=== PATIENT | female | born 1995 | race Caucasian/White ===

== ENCOUNTER 2022-02-08 13:22 | Outpatient (CLI) | payer BC ==
--- NOTE | 2022-02-08 17:07 | Ultrasound Report ---
PROCEDURE: OB Detailed Eval INDICATIONS: SUPERVISOIN OF OUTSIDE/PRIOR DATING DATA: Last menstrual period (LMP): 09/24/2021. LMP-based estimated date of delivery (MAEVE): 07/01/2022. First dating scan (date and location): 12/01/2021. Estimated date of delivery (MAEVE) from first dating scan: 06/30/2022. TECHNIQUE: Real-time scanning was performed of the fetus, with image documentation and biometric measurements . COMPARISON: Prior OB ultrasound report 12/01/2021 FINDINGS: General: A single living intrauterine gestation is present. Presentation: Breech Placenta: Placental position is posterior, and appeared low lying measuring 1.2 cm from the cervical os. Amniotic fluid index: 12.6 cm, within normal limits for gestational age. heart rate: 137 beats per minute. Maternal cervical canal: 3.8 cm long; normal length is 2.5 cm or more. biometrics: Biparietal diameter: 4.8 cm 20 weeks 4 days Head circumference: 17.3 cm 19 weeks 6 days Abdominal circumference: 14.7 cm 20 weeks 0 days Femur length: 3.1 cm 19 weeks 3 days Estimated gestational age from initial scan: 19 weeks 5 days Composite gestational age from present scan: 20 weeks 0 days Estimated weight and percentile: 313 g 50th percentile Measurement variability in biometric dating: +/- 10 days from 12-20 weeks gestation, +/- 2 weeks from 20-30 weeks gestation, +/- 3 weeks at 30 weeks gestation or later. Anatomic survey: Neuro: Ventricles are normal at less than 10 mm. Cisterna magna is normal at 3-11 mm. Cerebellum i s normal in size and morphology. Nuchal skin fold: Normal at less than 6 mm between 14 and 20 weeks gestational age. Face: Nose and lips, facial profile are normal. Spine: No evidence for spina bifida. Heart: 4-chambered heart is present, with normal ventricular outflow tracts. Diaphragm: Diaphragm is intact. Stomach: Left-sided stomach is present. Kidneys: No hydronephrosis. Normal is less than 5 mm in 2nd trimester, less than 7 mm in 3rd trimester. Cord: 3 vessel cord has orthotopic insertion. Bladder: Normal in size. Extremities: All 4 extremities are visualized. IMPRESSION: Single live intrauterine with ultrasound gestational age today of 20 weeks 0 days. Placenta is low-lying measuring 1.2 cm from the cervical os. Anatomy is within normal limits. Reviewed by: Jackie Son MD on 02/08/2022 5:05 PM PDT Approved by: Jackie Son MD on 02/08/2022 5:05 PM PDT Station ID: [id number]
== END 2022-02-08 13:23 | disposition home or self-care (01) ==
LOC: DI 13:22
PROVIDERS: ATTEND Nurse Practitioner Obstetrics & Gynecology
DX: O44.42 Low lying placenta NOS or without hemorrhage, second trimester (principal); Z36.89 Encounter for other specified antenatal screening; Z3A.20 20 weeks gestation of pregnancy

== ENCOUNTER 2022-04-01 10:39 | Outpatient (CLI) | payer BC ==
[2022-04-01 11:55] LABS: HGB - HEMOGLOBIN 11.9 g/dL (12.0-16.0); MEAN CORPUSCULAR HEMOGLOBIN 32.4 pg (27.0-31.0); MEAN CORPUSCULAR VOLUME 95.4 fL (81.0-99.0); MEAN PLATELET VOLUME 9.1 fL (7.9-10.8); RED BLOOD COUNT 3.67 10^6/uL (4.20-5.40); RED CELL DISTRIBUTION WIDTH 13.1 % (12.0-15.0); WHITE BLOOD COUNT 8.1 x10^3/uL (4.8-10.8)
== END 2022-04-01 10:40 | disposition home or self-care (01) ==
LOC: LAB 10:39
PROVIDERS: ATTEND Nurse Practitioner Obstetrics & Gynecology
DX: Z36.9 Encounter for antenatal screening, unspecified (principal); Z67.91 Unspecified blood type, Rh negative
CPT/HCPCS: 36415; 82950; 85027; 86850

== ENCOUNTER 2022-05-04 13:17 | Outpatient (CLI) | payer BC ==
--- NOTE | 2022-05-04 16:59 | Ultrasound Report ---
PROCEDURE: OB F/U or Repeat INDICATIONS: LOW LYING PLACENTA OUTSIDE/PRIOR DATING DATA: Last menstrual period (LMP): 09/24/2021. LMP-based estimated date of delivery (MAEVE): 07/01/2022. First dating scan (date and location): 12/01/2021, Dr. Quinones. Estimated date of delivery (MAEVE) from first dating scan: 06/30/2022. TECHNIQUE: Real-time scanning was performed of the fetus, with image documentation and biometric measurements. COMPARISON: None. FINDINGS: General: A single living intrauterine gestation is present. Presentation: Vertex Placenta: Placental position is anterior, without previa. Amniotic fluid index: 13.4 cm, 38.8% for gestational age. heart rate: 137 beats per minute. Maternal cervical canal: 3 cm long; normal length is 2.5 cm or more. Estimated gestational age from initial scan: 31 weeks, 6 days Measurement variability in biometric dating: +/- 10 days from 12-20 weeks gestation, +/- 2 weeks from 20-30 weeks gestation, +/- 3 weeks at 30 weeks gestation or more. Other: Not applicable. IMPRESSION: Single live intrauterine gestation in vertex position. No placenta previa. Reviewed by: Cristal Sorensen MD on 05/04/2022 4:58 PM PST Approved by: Cristal Sorensen MD on 05/04/2022 4:58 PM PST Station ID: [id number]
== END 2022-05-04 13:18 | disposition home or self-care (01) ==
LOC: DI 13:17
PROVIDERS: ATTEND Nurse Practitioner Obstetrics & Gynecology
DX: O44.43 Low lying placenta NOS or without hemorrhage, third trimester (principal); Z3A.31 31 weeks gestation of pregnancy

== ENCOUNTER 2022-05-06 12:44 | Outpatient (CLI) | payer BC ==
[2022-05-06 12:58] LABS: HCT - HEMATOCRIT 36.3 % (37.0-47.0); HGB - HEMOGLOBIN 12.5 g/dL (12.0-16.0); MEAN CORPUSCULAR HEMOGLOBIN 32.1 pg (27.0-31.0); MEAN CORPUSCULAR HGB CONC 34.4 g/dL (32.0-36.0); MEAN CORPUSCULAR VOLUME 93.3 fL (81.0-99.0); MEAN PLATELET VOLUME 9.4 fL (7.9-10.8); RED BLOOD COUNT 3.89 10^6/uL (4.20-5.40); RED CELL DISTRIBUTION WIDTH 12.7 % (12.0-15.0); WHITE BLOOD COUNT 8.7 x10^3/uL (4.8-10.8)
[2022-05-06 13:11] LABS: ALBUMIN 3.3 g/dL (3.2-5.5); ALBUMIN/GLOBULIN RATIO 0.9 (1.0-2.2); BILIRUBIN,TOTAL 0.5 mg/dL (0.2-1.0); CALCIUM 8.7 mg/dL (8.5-10.3); CREATININE 0.6 mg/dL (0.4-1.0); POTASSIUM 3.9 mmol/L (3.5-5.0)
== END 2022-05-06 12:45 | disposition home or self-care (01) ==
LOC: LAB 12:44
PROVIDERS: ATTEND Nurse Practitioner Obstetrics & Gynecology
DX: L29.9 Pruritus, unspecified (principal)
CPT/HCPCS: 36415; 80053; 82239; 85027

== ENCOUNTER 2022-06-24 17:38 | Outpatient (CLI) | payer BC ==
--- NOTE | 2022-06-24 19:17 | Ultrasound Report ---
PROCEDURE: OB F/U or Repeat INDICATIONS: UTERINE SIZE-DATE DISCREPANCY, THIRD TRIMESTER OUTSIDE/PRIOR DATING DATA: Last menstrual period (LMP): 09/24/2021. LMP-based estimated date of delivery (MAEVE): 07/01/2022. First dating scan (date and location): 12/01/2021. Estimated date of delivery (MAEVE) from first dating scan: 06/30/2022. The below data below was generated using the ultrasound MAEVE of 06/30/2022 TECHNIQUE: Real-time scanning was performed of the fetus, with image documentation and biometric measurements. Endovaginal scanning: Not performed COMPARISON: 05/04/2022 FINDINGS: General: A single living intrauterine gestation is present. Presentation: Vertex Placenta: Placental position is left lateral and posterior, without previa. Amniotic fluid index: 13.0 cm, within normal limits for gestational age. heart rate: 138 beats per minute. Maternal cervical canal: Not well seen on the late stage of biometrics: Biparietal diameter: 8.55 cm, 34 weeks 3 days Head circumference: 31.84 cm, 35 weeks 6 days Abdominal circumference: 31.08 cm, 35 weeks 0 days Femur length: 6.96 cm, 35 weeks 3 days Estimated gestational age from initial scan: 39 weeks 1 day Composite gestational age from present scan: 35 weeks 2 days Estimated weight and percentile: 2626 g, 2.9 percentile Measurement variability in biometric dating: +/- 10 days from 12-20 weeks gestation, +/- 2 weeks from 20-30 weeks gestation, +/- 3 weeks at 30 weeks gestation or more. Other: Grade 3 placenta. S/D ratio is 3.6, elevated. IMPRESSION: Significant IUGR. Current ultrasound age is 27 days less than clinical age based on init ial first trimester ultrasound. Elevated S/D ratio. Comment: A preliminary report was given to the referring provider by the house mover performing the e xamination. Reviewed by: Raymond Wright MD on 06/24/2022 7:16 PM PST Approved by: Raymond Wright MD on 06/24/2022 7:16 PM PST Station ID: [id number]
== END 2022-06-24 17:39 | disposition home or self-care (01) ==
LOC: DI 17:38
PROVIDERS: ATTEND Nurse Practitioner Obstetrics & Gynecology
DX: O36.5930 Maternal care for other known or suspected poor fetal growth, third trimester, not applicable or unspecified (principal); O26.843 Uterine size-date discrepancy, third trimester; Z3A.39 39 weeks gestation of pregnancy

== ENCOUNTER 2022-06-24 19:00 | Inpatient (IN) | payer BC ==
--- NOTE | 2022-06-24 19:17 | HISTORY & PHYSICAL EXAMINATION ---
Admit History - Visit Reason Visit Reason: Other - : 1 Parity: 0 Premature: 0 Ectopic: 0 : 0 Care: positive: [facility] Risk/History: positive: None Complications This : positive: Other Smoking Status: Never smoker - Mother's Labs Mother's Blood Type: positive: O Mother's RH: positive: Negative GBS: positive: Group B Step Negative Rubella Status: positive: Immune Review of Systems - Constitutional Constitutional: denies: Fatigue, Fever, Chills, Malaise - Eyes Eyes: denies: Blurred vision, Spots in vision, Dipolpia - Cardiovascular Cariovascular: denies: Irregular heart rate, Palpitations, Chest pain, Edema - Gastrointestinal Gastrointestinal: denies: Constipation, Diarrhea, Nausea, Vomiting - Genitourinary Genitourinary: denies: Dysuria - Musculoskeletal Musculoskeletal: denies: Back pain - Integumentary Integumentary: denies: Rash, Pruritis - Neurological Neurological: denies: Headache - Psychiatric Psychiatric: denies: Depression, Anxiety Physical - Abdominal Exam Contraction Intensity: positive: Other Uterine Resting Tone: positive: Soft - Monitoring Strip Review: positive: Category I - Presentation Presentation: positive: Vertex - Vaginal Exam Membranes: positive: Membranes intact - Speculum Exam Speculum Exam Performed: positive: No Plan for Labor - Plan For Labor I expect patient to be DC'd or transferred within 96 hours.: Yes Plan for Labor: Viola is a 27yo @ 39.0wks gestation by IVF implantation who presents to [facility] as directed following her growth ultrasound which revealed 2.9%tile for growth with WNL dopplers, Grade 3 placenta, and OZZY WNL. She denies vaginal bleeding, leakage of fluid or contractions. She reports +FM. She has been a patient of [facility] for the duration of her which has been complicated by low-lying placenta which resolved by her 32wk follow up ultrasound. She conceived via IVF and was cared for initially by [facility]. She has received consistent care for the duration of her . At todays routine visit she was measuring size less than dates with no growth in fundal height x 3 weeks and therefore a growth and OZZY was ordered. Dating criteria: LMP 09/24/2021 IVF transfer date 07/13/2021 Initial U/S @ 5wks confirms Serial exams - agree OB Hx:G1: Current Last pap 2020 WNL, No hx of abnormals. Medical Hx: infertility Surgical Hx: egg retrieval Family Hx: no significant Meds: PNV, endometrin vaginal suppository twice daily Allergies: Penicillin, hydrocodone Social: , lives with Mukul. 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 Her Mukul is a preacher at [employer]. No tobacco, ETOH or recreational drug use. Caffeine intake -none. course: A negative, antibody negative Rubella immune; varicella immune COVID vaccine: x 3 FAS WNL with the exception of low-lying placenta. Size c/w dating (EFW 50%tile). 3VC. OZZY WNL. Tdap 03/2022 F/u ultrasound at 32 weeks WNL. Low lying placenta resolved. 28wk antibody negative Rhogam administered 04/08/2022 Glucola 76 GBS negative Physical exam: Normocephalic, atraumatic Heart RRR w/o M/G/R Lungs CTAB Abdomen gravid, soft, nontender FHR baseline 130,moderate variability, no decelerations No contractions appreciated via tocometry SVE 3/75/-2, posterior. Vertex Bilateral LEs no edema Mood is good Assessment: 27yo @ 39.0wks gestation by IVF transfer date Intrauterine growth restriction GBS neg FHR Category I Plan: Admit for active management/medical induction of labor secondary to IUGR. Continuous monitoring. Expectant management until spontaneous expulsion of cervical ripening balloon or 4hrs. Initiate pitocin for labor augmentation with titration per protocol at that time. Jacuzzi PRN. Nitrous oxide PRN. Epidural per maternal request. Anticipate .
[2022-06-24] MEDS ORDERED: LACTATED RINGERS 1,000 ML ONE (19:41)
[2022-06-24] MEDS ORDERED: TRANEXAMIC ACID IN NACL 1,000 MG/100 ML BAG IV PRN (19:42)
[2022-06-24] MEDS ORDERED: SODIUM CHLORIDE FLUSH 0.9% 10 ML SYRINGE IVP PRN (19:42)
[2022-06-24] MEDS ORDERED: METHYLERGONOVINE 0.2 MG/ML VIAL IM PRN (19:42)
[2022-06-24] MEDS ORDERED: OXYTOCIN 10 UNIT/ML VIAL IM PRN (19:42)
[2022-06-24] MEDS ORDERED: lidocaine 1% 20 ML MDV ID PRN (19:42)
[2022-06-24] MEDS ORDERED: ONDANSETRON 4 MG/2 ML VIAL IVP PRN (19:42)
[2022-06-24] MEDS ORDERED: OXYTOCIN/SODIUM CHLORIDE 500 ML IV PRN (19:42)
[2022-06-24] MEDS ORDERED: miSOPROStoL 200 MCG TABLET BC PRN (19:42)
[2022-06-24] MEDS ORDERED: CARBOPROST TROMETHAMINE 250 MCG/ML AMP IM PRN (19:42)
[2022-06-24] MEDS ORDERED: LACTATED RINGERS 1,000 ML IV SCH (20:00)
--- OUTSIDE RECORDS SUMMARY | 2022-06-24 20:49 | EXTERNAL MEDICAL SUMMARY RPT | Continuity of Care Document ---
:1995 Author Organization [facility] Address [address] [place] [phone] Phone Care Team Providers Name Role Phone Unavailable Unavailable Unavailable Allergies No information. Encounters No information. Functional Status No information. Immunizations No information. Medications No information. Problems No information. Procedures No information. Results/Labs test date author facility value unit interpret ation Result panel 1 (unknown) (no date) (unknown) All (no value) (units unknown ) (unknown) Result panel 2 (unknown) (no date) (unknown) All (no value) (units unknown ) (unknown) Result panel 3 (unknown) (no date) (unknown) All (no value) (units unknown ) (unknown) Result panel 4 (unknown) (no date) (unknown) All (no value) (units unknown ) (unknown) Result panel 5 (unknown) (no date) (unknown) All (no value) (units unknown ) (unknown) Result panel 6 (unknown) (no date) (unknown) All (no value) (units unknown ) (unknown) Result panel 7 (unknown) (no date) (unknown) All (no value) (units unknown ) (unknown) Result panel 8 (unknown) (no date) (unknown) All (no value) (units unknown ) (unknown) Result panel 9 (unknown) (no date) (unknown) All (no value) (units unknown ) (unknown) Result panel 10 (unknown) (no date) (unknown) All (no value) (units unknown ) (unknown) Result panel 11 (unknown) (no date) (unknown) All (no value) (units unknown ) (unknown) Result panel 12 (unknown) (no date) (unknown) All (no value) (units unknown ) (unknown) Result panel 13 (unknown) (no date) (unknown) All (no value) (units unknown ) (unknown) Result panel 14 (unknown) (no date) (unknown) All (no value) (units unknown ) (unknown) Result panel 15 (unknown) (no date) (unknown) All (no value) (units unknown ) (unknown) Result panel 16 (unknown) (no date) (unknown) All (no value) (units unknown ) (unknown) Result panel 17 (unknown) (no date) (unknown) All (no value) (units unknown ) (unknown) Result panel 18 (unknown) (no date) (unknown) All (no value) (units unknown ) (unknown) Result panel 19 (unknown) (no date) (unknown) All (no value) (units unknown ) (unknown) Result panel 20 (unknown) (no date) (unknown) All (no value) (units unknown ) (unknown) Result panel 21 (unknown) (no date) (unknown) All (no value) (units unknown ) (unknown) Result panel 22 (unknown) (no date) (unknown) All (no value) (units unknown ) (unknown) Result panel 23 (unknown) (no date) (unknown) All (no value) (units unknown ) (unknown) Result panel 24 (unknown) (no date) (unknown) All (no value) (units unknown ) (unknown) Result panel 25 (unknown) (no date) (unknown) All (no value) (units unknown ) (unknown) Result panel 26 (unknown) (no date) (unknown) All (no value) (units unknown ) (unknown) Result panel 27 (unknown) (no date) (unknown) All (no value) (units unknown ) (unknown) Result panel 28 (unknown) (no date) (unknown) All (no value) (units unknown ) (unknown) Result panel 29 (unknown) (no date) (unknown) All (no value) (units unknown ) (unknown) Result panel 30 (unknown) (no date) (unknown) All (no value) (units unknown ) (unknown) Result panel 31 (unknown) (no date) (unknown) All (no value) (units unknown ) (unknown) Result panel 32 (unknown) (no date) (unknown) All (no value) (units unknown ) (unknown) Result panel 33 (unknown) (no date) (unknown) All (no value) (units unknown ) (unknown) Result panel 34 (unknown) (no date) (unknown) All (no value) (units unknown ) (unknown) Result panel 35 (unknown) (no date) (unknown) All (no value) (units unknown ) (unknown) Result panel 36 (unknown) (no date) (unknown) All (no value) (units unknown ) (unknown) Result panel 37 (unknown) (no date) (unknown) All (no value) (units unknown ) (unknown) Result panel 38 (unknown) (no date) (unknown) All (no value) (units unknown ) (unknown) Result panel 39 (unknown) (no date) (unknown) All (no value) (units unknown ) (unknown) Result panel 40 (unknown) (no date) (unknown) All (no value) (units unknown ) (unknown) Result panel 41 (unknown) (no date) (unknown) All (no value) (units unknown ) (unknown) Result panel 42 (unknown) (no date) (unknown) All (no value) (units unknown ) (unknown) Result panel 43 (unknown) (no date) (unknown) All (no value) (units unknown ) (unknown) Result panel 44 (unknown) (no date) (unknown) All (no value) (units unknown ) (unknown) Result panel 45 (unknown) (no date) (unknown) All (no value) (units unknown ) (unknown) Result panel 46 (unknown) (no date) (unknown) All (no value) (units unknown ) (unknown) Result panel 47 (unknown) (no date) (unknown) All (no value) (units unknown ) (unknown) Result panel 48 (unknown) (no date) (unknown) All (no value) (units unknown ) (unknown) Result panel 49 (unknown) (no date) (unknown) All (no value) (units unknown ) (unknown) Result panel 50 (unknown) (no date) (unknown) All (no value) (units unknown ) (unknown) Result panel 51 (unknown) (no date) (unknown) All (no value) (units unknown ) (unknown) Result panel 52 (unknown) (no date) (unknown) All (no value) (units unknown ) (unknown) Result panel 53 (unknown) (no date) (unknown) All (no value) (units unknown ) (unknown) Result panel 54 (unknown) (no date) (unknown) All (no value) (units unknown ) (unknown) Result panel 55 (unknown) (no date) (unknown) All (no value) (units unknown ) (unknown) Result panel 56 (unknown) (no date) (unknown) All (no value) (units unknown ) (unknown) Result panel 57 (unknown) (no date) (unknown) All (no value) (units unknown ) (unknown) Result panel 58 (unknown) (no date) (unknown) All (no value) (units unknown ) (unknown) Result panel 59 (unknown) (no date) (unknown) All (no value) (units unknown ) (unknown) Result panel 60 (unknown) (no date) (unknown) All (no value) (units unknown ) (unknown) Result panel 61 (unknown) (no date) (unknown) All (no value) (units unknown ) (unknown) Result panel 62 (unknown) (no date) (unknown) All (no value) (units unknown ) (unknown) Result panel 63 (unknown) (no date) (unknown) All (no value) (units unknown ) (unknown) Result panel 64 (unknown) (no date) (unknown) All (no value) (units unknown ) (unknown) Result panel 65 (unknown) (no date) (unknown) All (no value) (units unknown ) (unknown) Result panel 66 (unknown) (no date) (unknown) All (no value) (units unknown ) (unknown) Result panel 67 (unknown) (no date) (unknown) All (no value) (units unknown ) (unknown) Result panel 68 (unknown) (no date) (unknown) All (no value) (units unknown ) (unknown) Result panel 69 (unknown) (no date) (unknown) All (no value) (units unknown ) (unknown) Result panel 70 (unknown) (no date) (unknown) All (no value) (units unknown ) (unknown) Result panel 71 (unknown) (no date) (unknown) All (no value) (units unknown ) (unknown) Result panel 72 (unknown) (no date) (unknown) All (no value) (units unknown ) (unknown) Result panel 73 (unknown) (no date) (unknown) All (no value) (units unknown ) (unknown) Result panel 74 (unknown) (no date) (unknown) All (no value) (units unknown ) (unknown) Result panel 75 (unknown) (no date) (unknown) All (no value) (units unknown ) (unknown) Result panel 76 (unknown) (no date) (unknown) All (no value) (units unknown ) (unknown) Result panel 77 (unknown) (no date) (unknown) All (no value) (units unknown ) (unknown) Result panel 78 (unknown) (no date) (unknown) All (no value) (units unknown ) (unknown) Result panel 79 (unknown) (no date) (unknown) All (no value) (units unknown ) (unknown) Result panel 80 (unknown) (no date) (unknown) All (no value) (units unknown ) (unknown) Result panel 81 (unknown) (no date) (unknown) All (no value) (units unknown ) (unknown) Result panel 82 (unknown) (no date) (unknown) All (no value) (units unknown ) (unknown) Result panel 83 (unknown) (no date) (unknown) All (no value) (units unknown ) (unknown) Result panel 84 (unknown) (no date) (unknown) All (no value) (units unknown ) (unknown) Result panel 85 (unknown) (no date) (unknown) All (no value) (units unknown ) (unknown) Result panel 86 (unknown) (no date) (unknown) All (no value) (units unknown ) (unknown) Result panel 87 (unknown) (no date) (unknown) All (no value) (units unknown ) (unknown) Result panel 88 (unknown) (no date) (unknown) All (no value) (units unknown ) (unknown) Result panel 89 (unknown) (no date) (unknown) All (no value) (units unknown ) (unknown) Result panel 90 (unknown) (no date) (unknown) All (no value) (units unknown ) (unknown) Result panel 91 (unknown) (no date) (unknown) All (no value) (units unknown ) (unknown) Result panel 92 (unknown) (no date) (unknown) All (no value) (units unknown ) (unknown) Result panel 93 (unknown) (no date) (unknown) All (no value) (units unknown ) (unknown) Result panel 94 (unknown) (no date) (unknown) All (no value) (units unknown ) (unknown) Result panel 95 (unknown) (no date) (unknown) All (no value) (units unknown ) (unknown) Result panel 96 (unknown) (no date) (unknown) All (no value) (units unknown ) (unknown) Result panel 97 (unknown) (no date) (unknown) All (no value) (units unknown ) (unknown) Result panel 98 (unknown) (no date) (unknown) All (no value) (units unknown ) (unknown) Result panel 99 (unknown) (no date) (unknown) All (no value) (units unknown ) (unknown) Result panel 100 (unknown) (no date) (unknown) All (no value) (units unknown ) (unknown) Result panel 101 (unknown) (no date) (unknown) All (no value) (units unknown ) (unknown) Result panel 102 (unknown) (no date) (unknown) All (no value) (units unknown ) (unknown) Result panel 103 (unknown) (no date) (unknown) All (no value) (units unknown ) (unknown) Result panel 104 (unknown) (no date) (unknown) All (no value) (units unknown ) (unknown) Result panel 105 (unknown) (no date) (unknown) All (no value) (units unknown ) (unknown) Result panel 106 (unknown) (no date) (unknown) All (no value) (units unknown ) (unknown) Result panel 107 (unknown) (no date) (unknown) All (no value) (units unknown ) (unknown) Result panel 108 (unknown) (no date) (unknown) All (no value) (units unknown ) (unknown) Result panel 109 (unknown) (no date) (unknown) All (no value) (units unknown ) (unknown) Result panel 110 (unknown) (no date) (unknown) All (no value) (units unknown ) (unknown) Result panel 111 (unknown) (no date) (unknown) All (no value) (units unknown ) (unknown) Result panel 112 (unknown) (no date) (unknown) All (no value) (units unknown ) (unknown) Result panel 113 (unknown) (no date) (unknown) All (no value) (units unknown ) (unknown) Result panel 114 (unknown) (no date) (unknown) All (no value) (units unknown ) (unknown) Result panel 115 (unknown) (no date) (unknown) All (no value) (units unknown ) (unknown) Result panel 116 (unknown) (no date) (unknown) All (no value) (units unknown ) (unknown) Result panel 117 (unknown) (no date) (unknown) All (no value) (units unknown ) (unknown) Result panel 118 (unknown) (no date) (unknown) All (no value) (units unknown ) (unknown) Result panel 119 (unknown) (no date) (unknown) All (no value) (units unknown ) (unknown) Result panel 120 (unknown) (no date) (unknown) All (no value) (units unknown ) (unknown) Result panel 121 (unknown) (no date) (unknown) All (no value) (units unknown ) (unknown) Result panel 122 (unknown) (no date) (unknown) All (no value) (units unknown ) (unknown) Result panel 123 (unknown) (no date) (unknown) All (no value) (units unknown ) (unknown) Result panel 124 (unknown) (no date) (unknown) All (no value) (units unknown ) (unknown) Result panel 125 (unknown) (no date) (unknown) All (no value) (units unknown ) (unknown) Result panel 126 (unknown) (no date) (unknown) All (no value) (units unknown ) (unknown) Result panel 127 (unknown) (no date) (unknown) All (no value) (units unknown ) (unknown) Result panel 128 (unknown) (no date) (unknown) All (no value) (units unknown ) (unknown) Result panel 129 (unknown) (no date) (unknown) All (no value) (units unknown ) (unknown) Result panel 130 (unknown) (no date) (unknown) All (no value) (units unknown ) (unknown) Social History No information. Vital Signs No information.
[2022-06-24 20:51] LABS: BASOPHILS % (AUTO) 0.5 %; EOSINOPHILS # (AUTO) 0.1 10^3/uL (0.0-0.7); EOSINOPHILS % (AUTO) 1.6 %; HCT - HEMATOCRIT 36.2 % (37.0-47.0); HGB - HEMOGLOBIN 12.3 g/dL (12.0-16.0); LYMPHOCYTES # (AUTO) 1.7 10^3/uL (1.5-3.5); LYMPHOCYTES % (AUTO) 19.1 %; MEAN CORPUSCULAR HEMOGLOBIN 31.8 pg (27.0-31.0); MEAN CORPUSCULAR VOLUME 93.5 fL (81.0-99.0); MEAN PLATELET VOLUME 9.9 fL (7.9-10.8); MONOCYTES # (AUTO) 0.7 10^3/uL (0.0-1.0); MONOCYTES % (AUTO) 8.1 %; NEUTROPHILS # (AUTO) 6.2 10^3/uL (1.5-6.6); NEUTROPHILS % (AUTO) 70.4 %; PLT - PLATELET COUNT 234 10^3/uL (130-450); RED BLOOD COUNT 3.87 10^6/uL (4.20-5.40); RED CELL DISTRIBUTION WIDTH 12.4 % (12.0-15.0); WHITE BLOOD COUNT 8.8 x10^3/uL (4.8-10.8)
[2022-06-24 21:05] LABS: ALBUMIN/GLOBULIN RATIO 0.8 (1.0-2.2); BILIRUBIN,TOTAL 0.6 mg/dL (0.2-1.0); CALCIUM 8.8 mg/dL (8.5-10.3); CREATININE 1.1 mg/dL (0.4-1.0); POTASSIUM 3.7 mmol/L (3.5-5.0); TOTAL PROTEIN 6.7 g/dL (6.7-8.2)
[2022-06-24] MEDS ORDERED: OXYTOCIN/SODIUM CHLORIDE 500 ML IV SCH (22:00)
[2022-06-24 22:51] LABS: CREATININE,URINE 37.8 mg/dL
[2022-06-24 23:10] LABS: TOTAL PROTEIN,URINE TIMED < 6 mg/dL
[2022-06-25] MEDS ORDERED: SODIUM CHLORIDE FLUSH 0.9% 10 ML SYRINGE IVP SCH (01:00)
--- NOTE | 2022-06-25 03:48 | PROVIDER PROGRESS NOTE ---
Labor Progress Note - Uterine Monitoring Uterine Monitoring Mode: positive: External toco Contraction Frequency (min/apart): 2-4 Contraction Intensity: positive: Strong Uterine Resting Tone: positive: Soft - Monitoring Monitor Mode: positive: External ultrasound Heart Rate Baseline: 120 Heart Rate Variability: positive: Moderate (6-25 bmp) Accelerations: positive: Present, 15x15 Decelerations: positive: None Strip Review: positive: Category I - Vaginal Exam Dilation (in cm): 9 Effacement (%): 100 Station: 1 Cervical Position: Anterior - Labor Progress Note Labor Progress Note/Additional Text: S: Breathing through contractions without difficulty. Using nitrous oxide at the bedside and tolerating well. Feeling increased pressure at the peak of contractions. Denies CHAKRABORTY, visual disturbances, RUQ or epigastric pain. is supportive at the bedside. O: FHR 120, moderate variability, + accels, no decels Contractions palpate strong every 2-4 minutes with soft resting tone SVE 9/100/+1, vertex Pitocin @ 3mU/mL A: 27yo @ 39.1wks gestation by IVF transfer date IUGR Active labor GBS negative FHR Category I P: Continue IOL. Continuous monitoring. Nitrous oxide PRN. Anticipate .
[2022-06-25] MEDS ORDERED: HYDROCORTISONE 1% CREAM 28 GM TUBE PR PRN (05:22)
[2022-06-25] MEDS ORDERED: WITCH HAZEL/GLYCERIN 1 PAD TOP PRN (05:22)
--- NOTE | 2022-06-25 05:38 | DELIVERY NOTE ---
Delivery Note - Labor Labor: positive: Induced by oxytocin - Infant Delivery Method Delivery Method: positive: Spontaneous vaginal delivery - Cervical Ripening Method Cervical Ripening Method: positive: Balloon device - Presentation Presentation: positive: Vertex, [place] - left occiput anterior - Amniotic Fluid Description Amniotic Fluid Description: positive: Clear - Episiotomy Type Episiotomy Type: positive: None - Laceration Laceration: positive: None - Delivery Outcome Delivery Outcome: positive: Livebirth - [place]: positive: Placed in direct skin contact with mother, Stimulated, Warmed, [place] used sex: positive: Male - Cord Cord: positive: 3 vessels - Placenta Placenta: positive: Intact, Spontaneous - Estimated Blood Loss Estimated Blood Loss (in cc): 250 - Post Delivery Events Post Delivery Events: positive: No post delivery events - Delivery Comments (Free Text/Narrative) Delivery Comments (Free Text/Narrative): Viola is a 27yo @ 39.1wks gestation by IVF transfer date who presented on 06/24/2021 for medical induction of labor secondary to intrauterine growth restriction. Cervix was 3/75/-2, posterior and vertex. Cervical ripening balloon inserted with suspected SROM @ 2130 which was noted to be a moderate amount of clear fluid. Cervical ripening balloon was removed. Pitocin was then initiated for induction of labor for a maximum infusion rate of 3mU/mL. FHR pattern demonstrated Category I pattern throughout labor. Normal labor course. Pt progressed to c/c/+1 @ 0408. : Normal SVB of viable male infant on 06/25/2022 @ 0505. No nuchal cord. The was placed on maternal abdomen, stimulated, dried, and placed skin to skin. 's were 8/9 at 1 and 5 minutes respectively. Pitocin administered via IV for hemostasis. The umbilical cord was allowed to stop pulsating at which time it was doubly clamped and cut by CNM. Cord blood was obtained. 3VC. Fundal massage nad gentle cord traction applied for active management of the third stage. Placenta delivered spontaneously and intact at 0512. EBL 250mL. Fouth stage: Uterine fundus firm and there is no excessive bleeding. The perineum, vagina, and cervix were inspected and noted to be intact. initiated. Family bonding well. Both mother and baby were left in stable condition.
[2022-06-25] MEDS: IBUPROFEN 800 MG TABLET PO SCH ×3 (07:59→20:43)
[2022-06-25] MEDS: ACETAMINOPHEN 500 MG TABLET PO SCH ×3 (07:59→23:51)
[2022-06-25] MEDS: DOCUSATE SODIUM 100 MG CAPSULE PO SCH ×2 (11:01→20:44)
[2022-06-26] MEDS: IBUPROFEN 800 MG TABLET PO SCH ×3 (03:00→12:22)
[2022-06-26 07:07] LABS: HBsAG SCREEN Negative (Negative); RPR Non Reactive (Non Reactive)
[2022-06-26] MEDS: ACETAMINOPHEN 500 MG TABLET PO SCH (08:12)
[2022-06-26] MEDS: DOCUSATE SODIUM 100 MG CAPSULE PO SCH (08:15)
[2022-06-26] MEDS ORDERED: RHO(D) IMMUNE GLOBULIN 300 MCG SYRINGE IM ONE (11:47)
--- NOTE | 2022-06-26 11:59 | Discharge Plan ---
Discharge Plan Problem Reviewed?: Yes Disposition: Home, Self Care Condition: Good Diet: Regular Activity Restrictions: No Restrictions Shower Restrictions: No Driving Restrictions: No Weight Bearing: Full Weight Instruction Topics: Vaginal After No Smoking: If you smoke, Please STOP! Call for help. Follow-up with: Danika Quinones CNM, ARNP [Provider Admit Priv/Credential] - 1 Week
--- NOTE | 2022-06-26 12:47 | DISCHARGE SUMMARY ---
Discharge Summary Condition at Discharge: Good Discharge Disposition: 01 Home, Self Care - HOSPITAL COURSE Hospital Course: Date of Admission: 06/24/2022 Date of Discharge: 06/26/2022 Diagnosis on Admission: 1. 27 yo @ 39.0wks gestation by IVF transfer date 2. IUGR 3. GBS negative 4. FHR Category I Diagnosis on Discharge: 1. 27yo PPD#1 s/p TSVB viable male infant 2. Rh negative - s/p Rhogam 3. Normal recovery Brief History: [facility] on [facility]/24/[facility]22 for medical induction of labor secondary to IUGR with mildly elevated s/d ratio and Grade 3 placenta. [place] cervical ripening balloon inserted and left in place x 3 hours. SROM occurred and was noted to be a moderate amount of clear fluid. Pitocin initiated for induction of labor for a maximum infusion rate of 3mU/mL. She progressed to spontaneously deliver a viable male on 06/25/2022 @ 0505 over intact perineum. Apgars were 8/9 at 1 and 5 minutes respectively. EBL 250mL. She has been doing well in her course. She is ambulating and tole rating a regular diet. She is urinating without difficulty and her lochia is normal. Her pain is well controlled with oral medications. She is bonding well with her baby and is without difficulty. She will be discharged home today on PPD#1 with instructions to continue taking her vitamin while and continue taking ibuprofen and tylenol over the counter as needed for pain management. She intends to follow up with myself in 1 week for routine pp visit or sooner if needed. She has been given precautions to call if she has any worsening fevers, chills, abdominal pain, increased vaginal bleeding, or foul smelling vaginal lochia. Physical Exam: Normocephalic, atraumatic. Heart RRR w/o M/G/R, lungs CTAB. Abdomen soft and nontender. Fundus firm at U. Perineum intact, light lochia rubra. Bilateral LE's trace edema. - ALLERGIES Allergies/Adverse Reactions: Allergies Allergy/AdvReac Type Severity Reaction Status Date / Time hydrocodone Allergy Respiratory Verified 06/24/22 22:09 Penicillins Allergy Respiratory Verified 06/24/22 22:09 - LABS Result Diagrams: 06/24/22 20:30 06/24/22 20:30
[2022-06-26 13:38] VITALS: BP 121/73
--- NOTE | 2022-06-26 17:56 | Labor Flowsheet ---
Labor Flowsheet Datetime Report Generated by CPN: 06/26/2022 17:56 Datetime: 06/26/2022 12:21 VITAL SIGNS NBP Sys/Suri/Mean (mmHg): 121 : 73 : 83 Pulse: 87 Datetime: 06/26/2022 08:23 Respirations: 16 SpO2 (%): 100 Temperature (C): 36.7 Temperature Route: Oral Datetime: 06/25/2022 05:26 Membranes Ruptured Date/Time: 06/24/2022 19:30 Datetime: 06/25/2022 05:12 MEDICATIONS Pitocin (milliunits): Increased to @ 999 Medication Comments: Start pitocin bolus per provider Joni Datetime: 06/25/2022 05:05 Stage of : Recovery Stage 2 Comments: Time of 5:05 Datetime: 06/25/2022 05:01 Patient Care Comments: new bag LR Datetime: 06/25/2022 05:00 Frequency (min): 2-3 Contraction Comments: pushing with contractions FHR Baseline Rate : 125 Variability: Moderate 6-25 bpm Comments: intermittent monitoring as FHR not transmitting during pushing Datetime: 06/25/2022 04:51 STAGE 2 Pushing: Coached on Pushing; Urge to Push Pushing Position: Pushing with Contractions; Pushing Right Side Pushing Progress: Descent with Pushing Datetime: 06/25/2022 04:45 UTERINE ACTIVITY Monitor Mode: External Quality: Strong Duration (sec): 60-80 Pattern: Normal: <= 5 Contractions in 10 Minutes Datetime: 06/25/2022 04:30 Resting Tone (Palpate): Relaxed Datetime: 06/25/2022 04:15 ASSESSMENT A Monitor Mode: Telemetry Accelerations: 15X15 Decelerations: None Category: Category I Datetime: 06/25/2022 04:00 Pitocin Checklist: At Least 1 Acceleration of 15 bpm x 15 Seconds in 30 Minutes or Adequate Variabi lity; No More than 1 Late Deceleration Occurred in Past 30 Minutes; No More than 2 Variable Decelerat ions > 60 Seconds in Duration and decreasing >60 bpm in 30 minutes; No More than 5 Uterine Contractio ns in 10 Minutes for any 20 Minute Interval; Uterus Palpates Soft between Contractions Datetime: 06/25/2022 03:40 Patient Position/Activity: Right Extreme Datetime: 06/25/2022 03:33 COMMUNICATION Communication: Provider at Bedside Datetime: 06/25/2022 03:16 Provider Notified (Name): Danika Joni Notification Reason: Labor Status Communication Comments: Reported v Datetime: 06/25/2022 03:13 VAGINAL EXAM Dilatation (cm): 9.0 Effacement (%): 100 Station: 2 Exam by: SA Taylor, RN Datetime: 06/25/2022 02:12 PATIENT CARE IV/Blood Work: IV Bolus Started Datetime: 06/25/2022 01:23 I/O Interventions: Up to BR Datetime: 06/25/2022 00:38 LaborFlag: Antepartum Datetime: 06/25/2022 00:30 Monitor Interventions for UA: [place] Adjusted Datetime: 06/24/2022 22:14 Cervical Ripening Agents: [place] Balloon Datetime: 06/24/2022 21:30 Membrane Status: Ruptured Membranes Rupture Method: Spontaneous Amniotic Fluid Color: Clear Amniotic Fluid Amount: Small Amniotic Fluid Odor: Normal
[2022-06-27 01:07] LABS: HIV SCREEN 4TH GENERATION Non Reactive (Non Reactive)
== END 2022-06-26 13:30 | disposition home or self-care (01) | DRG 807 ==
LOC: WFO 19:00 → FBP 19:20 → WFO 19:43
PROVIDERS: ADMIT Nurse Practitioner Obstetrics & Gynecology; ATTEND Nurse Practitioner Obstetrics & Gynecology
PROC: 3E033VJ Introduction of Other Hormone into Peripheral Vein, Percutaneous Approach (ICD-10-PCS; principal; 2022-06-24)
PROC: 0U7C7ZZ Dilation of Cervix, Via Natural or Artificial Opening (ICD-10-PCS; 2022-06-24)
PROC: 10E0XZZ Delivery of Products of Conception, External Approach (ICD-10-PCS; 2022-06-25)
DX: O36.5930 Maternal care for other known or suspected poor fetal growth, third trimester, not applicable or unspecified (principal); Z37.0 Single live birth; Z3A.39 39 weeks gestation of pregnancy; O26.893 Other specified pregnancy related conditions, third trimester; Z67.41 Type O blood, Rh negative
CPT/HCPCS: 36415; 76816; 80053; 82570; 83033; 84156; 85025; 86592; 86850; 86870; 86900; 86901; 87340; 87389; A9270; J7120; 86703

== ENCOUNTER 2023-05-31 16:15 | Outpatient (CLI) | payer BC | END 2023-05-31 16:30 | disposition home or self-care (01) | LOC: LAB.N 16:15 | PROVIDERS: ATTEND Physician Assistant Medical | DX: N30.00 Acute cystitis without hematuria (principal) | CPT/HCPCS: 87077; 87086; 87181 ==

== ENCOUNTER 2023-11-07 08:49 | Outpatient (CLI) | payer BC ==
--- NOTE | 2023-11-07 17:56 | Ultrasound Report ---
PROCEDURE: OB Anatomy Scan INDICATIONS: SUPERVISION OF NORMAL OUTSIDE/PRIOR DATING DATA: IVF transfer: 08/22/2023. Estimated date of delivery (MAEVE) from transfer date: 03/17/2024. First dating scan (date and location): 11/07/2023. Estimated date of delivery (MAEVE) from first dating scan: 03/17/2024. The below data below was generated using the clinical MAEVE of 03/17/2024 TECHNIQUE: Real-time scanning was performed of the fetus, with image documentation and biometric measurements. Endovaginal scanning: Not performed. COMPARISON: None. FINDINGS: General: A single living intrauterine gestation is present. Presentation: Vertex Placenta: Placental position is anterior, without previa. Amniotic fluid index: 12.2 cm, within normal limits for gestational age. Largest pocket 3.4 cm heart rate: 150 beats per minute. Maternal cervical canal: 3.6 cm long; normal length is 2.5 cm or more. biometrics: Biparietal diameter: 5.2 cm, 21 weeks 5 days. 66 percentile. Head circumference: 19.2 cm, 21 weeks 3 days. 46 percentile. Abdominal circumference: 17.8 cm, 22 weeks 5 days. 84th percentile. Femur length: 3.8 cm, 22 weeks 0 days. 65th percentile Estimated gestational age from initial scan: 21 weeks 2 days Composite gestational age from present scan: 21 weeks 6 days Estimated weight and percentile: 487 g, 90th percentile. Measurement variability in biometric dating: +/- 10 days from 12-20 weeks gestation, +/- 2 weeks from 20-30 weeks gestation, +/- 3 weeks at 30 weeks gestation or later. Anatomic survey: Neuro: Ventricles are normal at less than 10 mm. Cisterna magna is normal at 3-11 mm. Cerebellum i s normal in size and morphology. Nuchal skin fold: Normal at less than 6 mm between 14 and 20 weeks gestational age. Face: Nose and lips, facial profile are normal. Spine: No evidence for spina bifida. Heart: 4-chambered heart is present, with normal ventricular outflow tracts. Diaphragm: Diaphragm is intact. Stomach: Left-sided stomach is present. Kidneys: No hydronephrosis. Normal is less than 5 mm in 2nd trimester, less than 7 mm in 3rd trimester. Cord: 3 vessel cord has orthotopic insertion. Bladder: Normal in size. Extremities: All 4 extremities are visualized. IMPRESSION: 1. [place] living intrauterine at 21 weeks 6 days based on today's ultrasound. Fetus is i n the 90th percentile for weight. 2. Normal placenta and amniotic fluid. 3. Normal and complete anatomic survey. Reviewed by: Hay Verde MD on 11/07/2023 5:19 PM PDT Approved by: Hay Verde MD on 11/07/2023 5:19 PM PDT Station ID: [id number]
== END 2023-11-07 08:50 | disposition home or self-care (01) ==
LOC: DI 08:49
PROVIDERS: ATTEND Nurse Practitioner Obstetrics & Gynecology
DX: Z34.02 Encounter for supervision of normal first pregnancy, second trimester (principal); Z36.89 Encounter for other specified antenatal screening

== ENCOUNTER 2023-12-07 10:45 | Outpatient (CLI) | payer BC | END 2023-12-07 11:00 | disposition home or self-care (01) | LOC: LAB.N 10:45 | PROVIDERS: ATTEND Family Medicine | DX: N30.00 Acute cystitis without hematuria (principal) | CPT/HCPCS: 87086 ==

== ENCOUNTER 2023-12-13 09:54 | Outpatient (CLI) | payer BC ==
[2023-12-13 11:12] LABS: HCT - HEMATOCRIT 31.3 % (37.0-47.0); HGB - HEMOGLOBIN 10.3 g/dL (12.0-16.0); MEAN CORPUSCULAR HEMOGLOBIN 31.7 pg (27.0-31.0); MEAN CORPUSCULAR HGB CONC 32.9 g/dL (32.0-36.0); MEAN CORPUSCULAR VOLUME 96.3 fL (81.0-99.0); MEAN PLATELET VOLUME 8.8 fL (7.9-10.8); RED BLOOD COUNT 3.25 10^6/uL (4.20-5.40); RED CELL DISTRIBUTION WIDTH 13.2 % (12.0-15.0); WHITE BLOOD COUNT 6.7 x10^3/uL (4.8-10.8)
== END 2023-12-13 09:55 | disposition home or self-care (01) ==
LOC: LAB 09:54
PROVIDERS: ATTEND Nurse Practitioner Obstetrics & Gynecology
DX: Z36.9 Encounter for antenatal screening, unspecified (principal); Z67.91 Unspecified blood type, Rh negative
CPT/HCPCS: 36415; 82950; 85027; 86850

== ENCOUNTER 2024-03-17 09:33 | Inpatient (IN) ==
[2024-03-17] MEDS ORDERED: fentaNYL 100 MCG/2 ML VIAL IVP PRN (10:28)
[2024-03-17] MEDS ORDERED: hydrALAZINE INJ 20 MG/ML VIAL IVP PRN (10:28)
[2024-03-17] MEDS ORDERED: OXYTOCIN 10 UNIT/ML VIAL IM PRN (10:28)
[2024-03-17] MEDS ORDERED: miSOPROStoL 200 MCG TABLET PR PRN (10:28)
[2024-03-17] MEDS ORDERED: OXYTOCIN/SODIUM CHLORIDE 500 ML IV PRN (10:28)
[2024-03-17] MEDS ORDERED: SODIUM CHLORIDE FLUSH 0.9% 10 ML SYRINGE IVP PRN ×2 (10:28→11:28)
[2024-03-17] MEDS ORDERED: TRANEXAMIC ACID IN NACL 1,000 MG/100 ML BAG IV PRN (10:28)
[2024-03-17] MEDS ORDERED: lidocaine 1% 20 ML MDV ID PRN (10:28)
[2024-03-17] MEDS ORDERED: LABETALOL 20 MG/4 ML SYRINGE IVP PRN ×3 (10:28)
[2024-03-17] MEDS ORDERED: NIFEdipine 10 MG CAPSULE PO PRN (10:28)
[2024-03-17] MEDS ORDERED: TERBUTALINE 1 MG/ML VIAL SUBQ PRN (10:28)
[2024-03-17] MEDS ORDERED: METHYLERGONOVINE 0.2 MG/ML VIAL IM PRN (10:28)
[2024-03-17] MEDS ORDERED: LACTATED RINGERS 1,000 ML IV PRN (10:28)
--- NOTE | 2024-03-17 10:36 | HISTORY & PHYSICAL EXAMINATION ---
Admit History Smoking Status: Never smoker Meds/Allgy Home Medications Ambulatory Orders Medication Instructions Recorded Confirmed vitamins no.159-iron tab PO 02/12/24 03/04/24 fumarate 28 mg-folic acid 800 mcg tablet ( Vitamin) Allergies Allergies Allergy/AdvReac Type Severity Reaction Status Date / Time hydrocodone Allergy Respiratory Verified 02/26/24 11:04 Penicillins Allergy Respiratory Verified 02/26/24 11:04 [facility] Medical History Medical History (Updated 02/14/24 @ 00:13 by Danika Quinones, MELLO, [employer]) History of gestational hypertension In vitro fertilization Infertility, female Endometriosis Social History Social History Smoking Status: Never smoker Do you dip or chew tobacco?: No Plan for Labor Plan For Labor I expect patient to be DC'd or transferred within 96 hours.: Yes Plan for Labor: HPI: This 28 yo @ 40.0 weeks by known IVF transfer on 08/22/2023 presents to L&D after membrane sweep in clinic on 03/14/2024 in clinic she was 5/80/-2, cephalic, intact. Upon arrival her cervix was 5/90/-1 and vertex with intact membranes. We reviewed management options at length and she desires AROM for augmentation of labor at this time. [facility] at 32+2 weeks gestation. Her has remained uncomplicated overall. She has received weekly NSTs secondary to her being an IVF and they have remained reassuring. ROS: No Headache, visual changes or right upper quadrant abdominal pain. Denies significant N/V. Denies urinary urgency or dysuria. All other symptoms reviewed and were negative except per HPI. In the event of an emergency, accepts the administration of blood products. Last u/s EFW: 90% at 21+6 week FAS Total maternal weight gain: 26# Medical Hx: Infertility Surgical Hx: Egg retrieval Social Hx: Monogamous with male partner. Denies current use of alcohol or tobacco, marijuana or other recreational drugs. Reports that she is safe in current relationship. Family Hx: Denies family history of congenital anomalies, Cystic Fibrosis or chromosomal abnormalities Allergies: Penicillin SOB, anaphylaxis Medications: LDASA, PNV LMP: IVF transfer: 08/22/2023 MAEVE by transfer date: 03/17/2024 Initial U/S: @ 10.4wks c/w dating FINAL MAEVE: 03/17/2024 : [place] : 06/25/2022- Chanec Sparrow Second stage 57 minutes, intact perineum. G2: Current PROBLEMS: IVF -weekly NSTs @ 36wks Hx gestational HTN -LDASA daily since 12wks BMI: 23.8 Blood type O- Rhogam @ 28wks given third trimester Rh Negative Antibody Negative CBC: PLT 284 HCT 38.7 HGB 12.9 RUB: Immune VZV: Immune HBsAg Negative HepC NR RPR/AB-EIA: NR HIV: NR PAP:2021 WNL GC/CT: 08/21 Negative HSV: Denies in self and partner Genetic testing: declined Covid: x 3 Flu: declines FAS: WNL Placenta: Anterior Cord: 3VC OZZY: 12..cm EFW: 487g 90%tile 50gm OGCT: 84 TDAP: 01/23/2024 RSV: 01/23/2024 Breast Pump: has Antibody screen: neg 3rd trimester PLT 303 HCT 31.3 HGB 10.3 GBS: 02/19/2024-negative Delivery plan: Unmedicated, low intervention delivery. Does not want to push on her back and wants to be reminded of this. MOD: Anticipate Contraception Physical exam: Normocephalic, atraumatic Heart RRR w/o M/G/R Lungs CTAB Abdomen gravid, soft, nontender. EFW 3700 FHR baseline 140s, moderate variability, + accelerations, no decelerations Contractions palpate moderate every X minutes with soft resting tone SVE 5/90/-1 , vertex, membranes intact followed by AROM which was noted to be a moderate amount of clear fluid Bilateral LE's no edema Mood is good. Assessment: 28 yo @ 39+X weeks gestation by IVF transfer date 08/22/2023 IOL/ Active labor FHR Category I GBS NEG Plan: Admit to [facility] for augmentation of labor Intermittent heart rate auscultation. Support patient request for unmedicated, low intervention experience Jacuzzi PRN. Nitrous oxide PRN. Anticipate .
[2024-03-17 10:54] LABS: BASOPHILS % (AUTO) 0.4 %; EOSINOPHILS # (AUTO) 0.1 10^3/uL (0.0-0.7); EOSINOPHILS % (AUTO) 1.3 %; HGB - HEMOGLOBIN 12.7 g/dL (12.0-16.0); LYMPHOCYTES % (AUTO) 15.1 %; MEAN CORPUSCULAR HEMOGLOBIN 32.2 pg (27.0-31.0); MEAN CORPUSCULAR HGB CONC 33.4 g/dL (32.0-36.0); MEAN CORPUSCULAR VOLUME 96.4 fL (81.0-99.0); MEAN PLATELET VOLUME 9.1 fL (7.9-10.8); MONOCYTES # (AUTO) 0.4 10^3/uL (0.0-1.0); MONOCYTES % (AUTO) 6.4 %; NEUTROPHILS # (AUTO) 5.3 10^3/uL (1.5-6.6); NEUTROPHILS % (AUTO) 76.1 %; PLT - PLATELET COUNT 226 10^3/uL (130-450); RED BLOOD COUNT 3.94 10^6/uL (4.20-5.40); RED CELL DISTRIBUTION WIDTH 14.1 % (12.0-15.0); WHITE BLOOD COUNT 6.9 x10^3/uL (4.8-10.8)
[2024-03-17] MEDS ORDERED: SODIUM CHLORIDE FLUSH 0.9% 10 ML SYRINGE IVP SCH ×2 (11:00→17:00)
--- NOTE | 2024-03-17 12:50 | PHARMACY PROGRESS NOTE ---
Best Possible Medication History Admit Date and Time: 03/17/24 [id number] Home Medications Medication Instructions Recorded Confirmed Type vitamins no.159-iron 1 tab PO DAILY 02/12/24 03/17/24 History fumarate 28 mg-folic acid 800 mcg tablet ( Vitamin) calcium carbonate (Calcium 500) 500 mg PO PRN 03/17/24 03/17/24 History Processed by: Pharmacy Medications reviewed in ED?: No Medication History completed: Yes Patient Interview: Completed [facility] Statement: Per [employer] records and pt interview. As the person ultimately responsible for medication therapy, providers are able to order a medication from an existing home medication list in [facility] via the "Reconcile Routine" prior to Confirmation of that medication by sales support engineer. Such practice is discouraged except when the physician, in their clinical judgment, deems that a medical need exists for a medication without regard to previous use.
[2024-03-17] MEDS ORDERED: WITCH HAZEL/GLYCERIN 1 PAD TOP PRN (16:50)
[2024-03-17] MEDS ORDERED: HYDROCORTISONE 1% CREAM 28 GM TUBE TOP PRN (16:50)
[2024-03-17] MEDS ORDERED: SIMETHICONE CHEW 80 MG TABLET PO PRN (16:50)
--- NOTE | 2024-03-17 16:55 | DELIVERY NOTE ---
Delivery Note Labor Labor: positive Induced by ARM Infant Delivery Method Delivery Method: positive Spontaneous vaginal delivery Presentation Presentation: positive Vertex Nuchal Cord Nuchal Cord: positive None Amniotic Fluid Description Amniotic Fluid Description: positive Clear Episiotomy Type Episiotomy Type: positive None Laceration Laceration: positive None Delivery Outcome Delivery Outcome: positive Livebirth [place]: positive Placed in direct skin contact with mother sex: positive Male Cord Cord: positive 3 vessels Placenta Placenta: positive Intact and Spontaneous Estimated Blood Loss Estimated Blood Loss (in cc): 325 Post Delivery Events Post Delivery Events: positive No post delivery events Delivery Comments (Free Text/Narrative) Delivery Comments (Free Text/Narrative): Labor: This 28yo @ 40.0 wks gestation by IVF transfer date presented to [facility] for induction of labor with AROM. Cervix was 5/90/-2 and vertex. AROM occurred at 1011 and was noted to be a moderate amount of clear fluid. FHR demonstrated Category I pattern throughout labor. Normal labor course. She progressed to c/c/+1 at 1549. : Normal SVB of viable male on 03/17/2024 @ 1625. No Nucal. The was placed on maternal abdomen, stimulated, dried, and placed skin to skin. 's were 9/9 at 1 and 5 min respectively. Pitocin administered via IV for hemostasis. The umbilical cord was allowed to stop pulsating at which time it was doubly clamped by CNM and cut by FOB. Cord blood was obtained. 3VC. Fundal massage and gentle cord traction applied for active management of the third stage. Placenta delivered spontaneously and intact at 1636. QBL 325 mL. Fourth stage: Uterine fundus firm and there is no excessive bleeding. The perineum, vagina, and cervix were inspected and found to be intact. Skin to skin maintained. Both mother and baby were left in stable condition.
[2024-03-17] MEDS: IBUPROFEN 800 MG TABLET PO PRN (17:27)
[2024-03-17] MEDS: ACETAMINOPHEN 500 MG TABLET PO PRN (17:27)
[2024-03-17] MEDS: OXYTOCIN/SODIUM CHLORIDE 500 ML IV PRN (20:13)
[2024-03-17] MEDS: miSOPROStoL 200 MCG TABLET BC PRN (20:49)
[2024-03-18] MEDS ORDERED: RHO(D) IMMUNE GLOBULIN 300 MCG SYRINGE IVP ONE (03:31)
[2024-03-18 06:15] VITALS: O2SAT 97
[2024-03-18 06:45] LABS: HCT - HEMATOCRIT 31.6 % (37.0-47.0); HGB - HEMOGLOBIN 10.8 g/dL (12.0-16.0); MEAN CORPUSCULAR HEMOGLOBIN 32.8 pg (27.0-31.0); MEAN CORPUSCULAR HGB CONC 34.2 g/dL (32.0-36.0); MEAN PLATELET VOLUME 9.3 fL (7.9-10.8); RED BLOOD COUNT 3.29 10^6/uL (4.20-5.40); RED CELL DISTRIBUTION WIDTH 13.9 % (12.0-15.0); WHITE BLOOD COUNT 9.4 x10^3/uL (4.8-10.8)
[2024-03-18] MEDS: DOCUSATE SODIUM 100 MG CAPSULE PO SCH (09:25)
[2024-03-18] MEDS: RHO(D) IMMUNE GLOBULIN 300 MCG SYRINGE IVP ONE (09:41)
--- NOTE | 2024-03-18 09:44 | PROVIDER PROGRESS NOTE ---
Current Medications Current Medications Current Medications: Current Medications Generic Name Dose Route Start Last Admin Trade Name Freq PRN Reason Stop Dose Admin Acetaminophen 1,000 mg 03/17/24 16:50 03/18/24 03:00 Acetaminophen 500 Mg Tablet PO 1,000 mg Q8HR PRN Administration Mild Pain or Fever>38C(100.4F) Docusate Sodium 100 mg 03/17/24 21:00 03/18/24 09:25 Docusate Sodium 100 Mg Capsule PO 100 mg BID ZACH Administration Hydralazine HCl 5 - 10 mg 03/17/24 10:28 Hydralazine Inj 20 Mg/Ml Vial IVP Q20M PRN SBP> or= 160 OR DBP> or= 110 Protocol Hydrocortisone 1 applic 03/17/24 16:50 Hydrocortisone 1% Cream 28 Gm Tube TOP QID PRN PERINEAL REPAIR Lactated Ringer's 500 mls @ 999 mls/hr 03/17/24 10:28 Lr IV PRN PRN per provider Oxytocin/Sodium Chloride 500 mls @ 999 mls/hr 03/17/24 10:28 Pitocin/Sodium Chloride IV PRN PRN POST- HEMORR PREVENTION Protocol 999 MILLIUNIT/MIN Tranexamic Acid 1,000 mg in 100 mls @ 600 mls/hr 03/17/24 10:28 Tranexamic 1,000 Mg/100ml-Nacl IV Q30M PRN EBL >1200mL and within 3hr Oxytocin/Sodium Chloride 500 mls @ 999 mls/hr 03/17/24 16:50 03/17/24 22:25 Pitocin/Sodium Chloride IV Infused PRN PRN Titration POST- HEMORR PREVENTION Protocol 999 MILLIUNIT/MIN Ibuprofen 800 mg 03/17/24 16:50 03/18/24 09:24 Ibuprofen 800 Mg Tablet PO 800 mg Q8HR PRN Administration Moderate Pain (Level 4-6) Labetalol HCl 20 - 80 mg 03/17/24 10:28 Labetalol 20 Mg/4 Ml Syringe IVP Q10M PRN SBP> or= 160 OR DBP> or= 110 Protocol Labetalol HCl 20 mg 03/17/24 10:28 Labetalol 20 Mg/4 Ml Syringe IVP .ONCE PRN SBP> or= 160 OR DBP> or= 110 Protocol Labetalol HCl 20 - 40 mg 03/17/24 10:28 Labetalol 20 Mg/4 Ml Syringe IVP Q10M PRN SBP> or= 160 OR DBP> or= 110 Protocol Lidocaine HCl 20 ml 03/17/24 10:28 Lidocaine 1% 20 Ml Mdv ID 03/20/24 10:30 .ONCE PRN PERINEAL REPAIR Methylergonovine Maleate 0.2 mg 03/17/24 10:28 Methylergonovine 0.2 Mg/Ml Vial IM .ONCE PRN Hemorrhage Misoprostol 800 mcg 03/17/24 10:28 Misoprostol 200 Mcg Tablet NM .ONCE PRN Hemorrhage Nifedipine 10 - 20 mg 03/17/24 10:28 Nifedipine 10 Mg Capsule PO Q20M PRN SBP> or= 160 OR DBP> or= 110 Protocol Oxytocin 10 unit 03/17/24 10:28 Oxytocin 10 Unit/Ml Vial IM .ONCE PRN Step One if no IV access. Rho Immune Globulin 300 mcg 03/18/24 10:00 Rho(D) Immune Globulin 300 Mcg Syringe IVP 03/18/24 10:01 ONCE ONE Simethicone 80 mg 03/17/24 16:50 Simethicone Chew 80 Mg Tablet PO TID PRN Gas Sodium Chloride 10 ml 03/17/24 11:28 Sodium Chloride Flush 0.9% 10 Ml Syringe IVP PRN PRN NEEDED PER PROVIDER ORDERS Sodium Chloride 10 ml 03/17/24 17:00 Sodium Chloride Flush 0.9% 10 Ml Syringe IVP 0100,0900,1700 ZACH [place]/Glycerin 1 pad 03/17/24 16:50 [place]/Glycerin 1 Pad TOP PRN PRN PERINEAL REPAIR Objective Vital Signs/Intake & Output Vital Signs: Vital Signs x48h Temp Pulse Resp BP Pulse Ox 03/18/24 08:09 36.8 C 92 H 18 117/73 03/18/24 06:00 37.0 C 82 14 113/67 97 03/18/24 03:05 98 H 16 114/71 100 Intake & Output: Intake & Output 03/16/24 03/17/24 03/18/24 03/19/24 05:59 05:59 05:59 05:59 Intake Total 500 / 500 Output Total 196 / 196 Balance 304 / 304 Weight (kg) 75.296 kg Lab Results 03/18/24 06:34 Other Labs: Lab Results x24hrs 03/18/24 03/17/24 03/17/24 Range/Units 06:34 20:28 10:45 WBC 9.4 6.9 (4.8-10.8) x10^3/uL RBC 3.29 L 3.94 L (4.20-5.40) 10^6/uL Hgb 10.8 L 12.7 (12.0-16.0) g/dL Hct 31.6 L 38.0 (37.0-47.0) % MCV 96.0 96.4 (81.0-99.0) fL MCH 32.8 H 32.2 H (27.0-31.0) pg MCHC 34.2 33.4 (32.0-36.0) g/dL RDW 13.9 14.1 (12.0-15.0) % Plt Count 219 226 (130-450) 10^3/uL MPV 9.3 9.1 (7.9-10.8) fL Neut # (Auto) 5.3 (1.5-6.6) 10^3/uL Lymph # (Auto) 1.0 L (1.5-3.5) 10^3/uL [place] # (Auto) 0.4 (0.0-1.0) 10^3/uL Eos # (Auto) 0.1 (0.0-0.7) 10^3/uL Baso # (Auto) 0.0 (0.0-0.1) 10^3/uL Absolute Nucleated RBC 0.00 x10^3/uL Nucleated RBC % 0.0 /100WBC Blood Type O NEGATIVE O NEGATIVE Weak D (Du) WEAK-D NEGATIVE Antibody Screen NEGATIVE Maternal Bleed NEGATIVE (NEGATIVE) Other Results/Comments Other Results/Comments: S: Bonding well with baby. without significant difficulty and states he seems to being have less difficulty latching than her previous baby however he falls asleep frequently at the breast. Bleeding decreased and is light after some episodes of increased bleeding last night. Pain is well controlled with oral medications. She is urinating without difficulty. Has not yet had BM. is supportive at the bedside. O: Heart RRR w/o M/G/R, lungs CTAB, abdomen soft and nontender with fundus firm at U, perineum intact, light lochia rubra, bilateral LE's trace edema. 2 episodes of mildly increased bleeding last evening when initially up to the void after delivery and then again this morning she expelled a golf-ball sized clot with voiding. Bleeding was weighed and estimated total (including QBL at delivery) is 500. Hgb 12.7-->10.8 Hct 38.0 --> 31.6 A: 28 yo -->P2 PPD#1 s/p TSVD viable male Normal recovery P: Continue routine care and medications. Monitoring bleeding throughout the daytime today. Discontinue IV at 1500 today if bleeding WNL. Evaluate for discharge home this evening.
--- NOTE | 2024-03-18 17:32 | Discharge Summary ---
Discharge Summary HOSPITAL COURSE Hospital Course: Date of Admission: 03/17/2024 Date of Discharge: 03/18/2024 Diagnosis on Admission: 1. 28yo @ 40.0wks gestation by IVF transfer date 2. as a result of invitro fertilization 3. FHR Category I 4. GBS negative 5. Rh negative Diagnosis on Discharge: 1. 28yo PPD#1 s/p TSVD viable male 2. 3. Normal recovery 4. S/p Rhogam injection Brief History: She is a patient of [facility] who presented on 03/17/2024 for medical induction of labor by AROM secondary to IVF . Cervix was 5/90/- 2 and vertex with intact membranes. AROM occurred and was noted to be a moderate amount of clear fluid. She spontaneously progressed to deliver a viable male infant on 03/17/2024 @ 1625. Perineum was noted to be intact. Apgars were 9/9 at 1 and 5 minutes respectively. QBL 325 mL. She has been doing well in her course. She is ambulating and tolerating a regular diet. She is urinating without difficulty and her lochia is normal following mildly increased lochia initially after voiding for the first time after delivery that resolved and has reverted to normal. Her pain is well controlled with oral medications. She will be discharged home today on day #1 with instructions to continue taking her vitamin while and to continue taking Ibuprofen and Tylenol over the counter as needed for pain management. She received Rhogam injection secondary to Rh negative status and infant Rh positive. She intends to follow up with myself at [facility] in 1 week for routine visit or sooner if needed. She has been given precautions to call if she has any worsening fevers, chills, abdominal pain, increased vaginal bleeding or foul smelling vaginal lochia. Physical Exam: Normocephalic, atraumatic. Heart RRR w/o M/G/R, lungs CTAB, abdomen soft and nontender with fundus firm at U, perineum intact, light lochia rubra, bilateral LE's no edema. Mood is good. ALLERGIES Allergies Allergy/AdvReac Type Severity Reaction Status Date / Time hydrocodone Allergy Respiratory Verified 03/17/24 20:56 Penicillins Allergy Respiratory Verified 03/17/24 20:56 MEDICATIONS Ambulatory Orders Medication Instructions Recorded Confirmed vitamins no.159-iron 1 tab PO DAILY 02/12/24 03/17/24 fumarate 28 mg-folic acid 800 mcg tablet ( Vitamin) calcium carbonate (Calcium 500) 500 mg PO PRN 03/17/24 03/17/24 LABS 03/18/24 06:34 Discharge Plan Discharge Patient Disposition: 01 Home, Self Care Condition: Good Prescriptions: Continued calcium carbonate [Calcium 500] 500 mg calcium (1,250 mg) tablet,chewable 500 mg PO PRN Vitamin 28 mg iron- 800 mcg tablet 1 tab PO DAILY Activity Restrictions: No Restrictions Diet: Regular Print Language: Nepali Patient Instructions: Vaginal After, Self Care Follow-up Care: Danika Quinones CNM, ANANTH [Provider Admit Priv/Credential] -
--- NOTE | 2024-03-18 18:41 | Labor Flowsheet ---
Labor Flowsheet Datetime Report Generated by CPN: 03/18/2024 18:41 Datetime: 03/18/2024 12:30 VITAL SIGNS NBP Sys/Suri/Mean (mmHg): 89 : 50 : 58 Pulse: 76 LaborFlag: Labor Datetime: 03/17/2024 22:14 SpO2 (%): 99 Datetime: 03/17/2024 16:49 Membranes Ruptured Date/Time: 03/17/2024 10:11 MEDICATIONS Cervical Ripening Agents: Other Datetime: 03/17/2024 16:44 Patient Care Comments: FF Datetime: 03/17/2024 16:26 UTERINE ACTIVITY Monitor Mode: External Frequency (min): 1-3 Quality: Strong Duration (sec): 40-60 Pattern: Normal: <= 5 Contractions in 10 Minutes Resting Tone (Palpate): Relaxed FHR Baseline Changes: No Baseline Change Variability: Moderate 6-25 bpm Accelerations: 15X15 Decelerations: None Category: Category I Datetime: 03/17/2024 16:00 ASSESSMENT A Monitor Mode: External US FHR Baseline Rate : 135 Datetime: 03/17/2024 15:25 Monitor Interventions for FHR: Ultrasound Adjusted Comments: maternal heart recorded Datetime: 03/17/2024 14:59 COMMUNICATION Communication: Provider at Bedside Datetime: 03/17/2024 14:13 VAGINAL EXAM Dilatation (cm): 7.5 Effacement (%): 90 Station: 0 Datetime: 03/17/2024 12:59 Temperature (C): 36.6 Datetime: 03/17/2024 12:29 PAIN Pain Scale: 5 Pain Presence: Intermittent Pain Type: Cramping Pain Location: Abdomen Pain Goal: 7 Pain Coping: Talking Through Contractions Datetime: 03/17/2024 12:28 PATIENT CARE I/O Interventions: Up to BR Datetime: 03/17/2024 10:11 Membrane Status: Ruptured Membranes Rupture Method: Artificial Amniotic Fluid Color: Clear Amniotic Fluid Amount: Moderate Datetime: 03/17/2024 10:10 Exam by: A. Joni Datetime: 03/17/2024 10:07 Communication Comments: discussing POC, pt ok with check and possibly AROM. Datetime: 03/17/2024 09:59 Pain Assessment Comments: tolerable pain level is 7/10 Datetime: 03/17/2024 09:56 Stage of : Labor
== END 2024-03-18 18:39 | disposition home or self-care (01) | DRG 807 ==
LOC: WFO 09:33 → FBP 09:35
PROVIDERS: ADMIT Nurse Practitioner Obstetrics & Gynecology; ATTEND Nurse Practitioner Obstetrics & Gynecology